=== PATIENT | female | born 1940 | race Caucasian/White ===

== ENCOUNTER 2016-12-26 16:38 | Emergency (ER) | payer OTHER ==
[2016-12-26 16:47] VITALS: PULSE 78; TEMP 98.2
[2016-12-26] MEDS ORDERED: LET GEL TOPICAL 1 EA SYR TP ONE (16:57)
--- NOTE | 2016-12-26 17:40 | EDPHY ---
H & P Time Seen by Provider: 12/26/16 16:54 HPI/ROS: This patient reports a mechanical fall at home when she tripped on an uneven flex and surface while caring branches doing yd work. She bumped her right leg against the edge of flexed and stair causing a laceration of moderate size and moderate bleeding shortly prior to arrival. She reports mild to moderate pain with no exacerbating or alleviating factors. She denies any other injuries and had no difficulty walking. She wrapped the wound at home and came in for evaluation ROS: Constitutional: No generalized weakness, fatigue or fever. She she felt well prior to the fall which she again reports is mechanical HEENT: No complaints. She neuro: No numbness tingling or weakness. She did not strike her head. She has no headache Musculoskeletal: No neck or back pain. No bony pain to the affected lower extremity Pulmonary: No shortness of breath or chest pain. GI: No abdominal pain 7 point ROS is otherwise negative Past Medical/Surgical History: Dyslipidemia Social History: Retired toddler teacher Smoking Status: Never smoked Physical Exam: Physical Exam Vital signs are normal. General: Pleasant 75-year-old female No acute distress HEENT: Atraumatic. Eyes: Pupils equal and react to light. Extraocular motions are intact. Lungs: No respiratory distress. Cardiac: Brisk capillary refill is intact throughout. Pulses are 2+ and symmetric in the affected extremity. Skin: No rash or pallor. Extremities: Atraumatic normal except for right leg Right leg: Patient has a 7 cm full-thickness laceration with some irregularity to the wound margin the wound is gaping open 2 cm in the middle with subcutaneous tissue evident but no deeper structures injured and no foreign bodies noted on direct examination. Inferior to this mid anterior pretibial leg wound is a partial-thickness skin avulsion/abrasion that is 2 x 3 cm in size with no active bleeding or foreign bodies. No underlying bony tenderness. Neuro: Alert and oriented x3 with no sensorimotor deficits. Constitutional: Initial Vital Signs Temperature (C) 36.8 C 12/26/16 16:43 Heart Rate 78 12/26/16 16:43 Respiratory Rate 16 12/26/16 16:43 Blood Pressure 113/73 12/26/16 16:43 O2 Sat (%) 94 12/26/16 16:43 O2 Delivery Mode Room Air Allergies/Adverse Reactions: No Known Allergies Allergy (Unverified 12/26/16 16:47) Home Medications: Medication Instructions Recorded SIMVASTATIN 12/26/16 Sertraline HCl 12/26/16 MDM/Departure - MDM Procedures: The wound is 7 cm, full-thickness. The wound was copiously irrigated with saline. The wound was explored for foreign bodies and none were found. The wound was prepped and draped in the normal sterile fashion. The wound was anesthetized using let solution followed by 50 50 mix of 0.5% Marcaine and 1% lidocaine-10 mL with 27 gauge needle with good effect. The edges were reapproximated using 4 0 Ethilon on a PC 3 needle-18 running sutures with good hemostasis and cosmesis. The patient tolerated the procedure well. There were no complications. A dressing is placed. We counseled patient regarding wound care. Medications Given: Discontinued Medications Tetracaine/Epinephrine/Lidocaine (Let Gel Topical) 1 ea TP EDNOW ONE Stop: 12/26/16 16:58 Last Admin: 12/26/16 17:06 Dose: 1 ea ED Course/Re-evaluation: Discussion: Patient with leg laceration without clinical evidence to suggest bony injury, antecedent cardiopulmonary pathology or other concerning findings. - Depart Disposition: Home, Routine, Self-Care Clinical Impression: Abrasion Leg laceration Qualifiers: Encounter type: initial encounter Laterality: right Qualified Code(s): S81.811A - Laceration without foreign body, right lower leg, initial encounter Condition: Good Instructions: Care For Your Stitches (ED), Abrasion (ED) Additional Instructions: Diagnosis: Leg laceration Plan: Keep the wound clean and dry for the next 2 days Then clean daily with warm soapy water Return for suture removal in 12 days or so. Return sooner for redness or discharge. Regarding abrasion, he can leave the current dressing in place for the next 2-3 days. Then remove it, clean with warm soapy water and replace the dressing until it is healed. A few replace the dressing try to find 1 that allows it to breathe such as Tegaderm. you can ask the pharmacist about this. Ibuprofen and or Tylenol for discomfort if needed. Referrals: Zhanna Gautam, DO [Primary Care Provider] - As per Instructions
[2016-12-26 18:29] VITALS: BP 143/89; RESP 18; O2SAT 95
== END 2016-12-26 18:27 | disposition home or self-care (01) ==
LOC: CED 16:38
PROC: 0HQKXZZ Repair Right Lower Leg Skin, External Approach (ICD-10-PCS; principal; 2016-12-26)
DX: S81.811A Laceration without foreign body, right lower leg, initial encounter (principal); S80.811A Abrasion, right lower leg, initial encounter; W01.198A Fall on same level from slipping, tripping and stumbling with subsequent striking against other object, initial encounter; Y92.009 Unspecified place in unspecified non-institutional (private) residence as the place of occurrence of the external cause; Y99.8 Other external cause status; Y93.89 Activity, other specified